=== PATIENT | female | born 1995 | race Hispanic/Latino ===

== ENCOUNTER 2016-07-18 01:57 | Emergency (ER) | payer BC ==
[2016-07-18 02:14] VITALS: RESP 17; TEMP 98.8; O2SAT 100
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
[2016-07-18] MEDS ORDERED: Oxycodone/Acetaminophen 5/325 mg Tab PO ONE (02:55)
[2016-07-18 03:17] VITALS: BP 141/81
[2016-07-18 03:41] VITALS: PULSE 108
--- NOTE | 2016-07-18 10:47 | RAD ---
PROCEDURE: Right Foot Radiographs. HISTORY: injury COMPARISON: None. FINDINGS: BONES: Normal. No fracture. JOINTS: Normal. SOFT TISSUES: Normal. OTHER FINDINGS: None. IMPRESSION: Normal right foot radiographs.
== END 2016-07-18 03:41 | disposition home or self-care (01) ==
LOC: H.ER 01:57
DX: S99.921A Unspecified injury of right foot, initial encounter (principal); W22.8XXA Striking against or struck by other objects, initial encounter; Y92.89 Other specified places as the place of occurrence of the external cause